=== PATIENT | male | born 1960 | race Two or more races ===

== ENCOUNTER 2018-08-15 06:54 | Emergency (ER) | payer MEDICAID ==
[~2018-08-15] VITALS: Ht 167.6 cm; Wt 83.9 kg
[2018-08-15 09:45] VITALS: BP 162/98
== END 2018-08-15 09:47 | disposition home or self-care (01) ==
LOC: ER 06:54 → EDSEX 06:54 → ER 09:46
DX: J40 Bronchitis, not specified as acute or chronic (principal)
CPT/HCPCS: 71045